=== PATIENT | male | born 1975 | race Two or more races ===

== ENCOUNTER 2020-03-03 14:50 | Outpatient (RCR) | payer OTHER | END 2020-03-07 | disposition home or self-care (01) | LOC: WCC 14:50 | DX: T63.331A Toxic effect of venom of brown recluse spider, accidental (unintentional), initial encounter (principal); X58.XXXA Exposure to other specified factors, initial encounter; Y92.9 Unspecified place or not applicable | CPT/HCPCS: 99204 ==

== ENCOUNTER 2020-03-03 16:12 | Outpatient (RCR) | payer SELFPAY | END 2020-03-07 | disposition home or self-care (01) | LOC: WCC 16:12 | DX: T63.331A Toxic effect of venom of brown recluse spider, accidental (unintentional), initial encounter (principal); X58.XXXA Exposure to other specified factors, initial encounter; Y92.9 Unspecified place or not applicable | CPT/HCPCS: G0277 ×2 ==

== ENCOUNTER 2020-03-08 09:28 | Outpatient (RCR) | payer OTHER | END 2020-04-04 | disposition home or self-care (01) | LOC: WCC 09:28 | DX: T63.331A Toxic effect of venom of brown recluse spider, accidental (unintentional), initial encounter (principal); L97.822 Non-pressure chronic ulcer of other part of left lower leg with fat layer exposed; X58.XXXA Exposure to other specified factors, initial encounter; Y92.9 Unspecified place or not applicable | CPT/HCPCS: 11042 ==

== ENCOUNTER 2020-03-08 13:29 | Outpatient (RCR) | payer SELFPAY | END 2020-04-04 | disposition home or self-care (01) | LOC: WCC 13:29 | DX: T63.331A Toxic effect of venom of brown recluse spider, accidental (unintentional), initial encounter (principal); L97.822 Non-pressure chronic ulcer of other part of left lower leg with fat layer exposed; X58.XXXA Exposure to other specified factors, initial encounter; Y92.9 Unspecified place or not applicable ==